=== PATIENT | female | born 1990 | race Caucasian/White ===

== ENCOUNTER 2021-07-11 03:21 | Emergency (ER) | payer MEDICAID ==
[~2021-07-11] VITALS: Ht 167.6 cm; Wt 74.1 kg
[2021-07-11 03:27] VITALS: BP 141/99
[2021-07-11] MEDS ORDERED: LORazepam 1 MG tablet PO PRN (03:35)
--- NOTE | 2021-07-11 04:11 | NUR ---
PT IS NOT IN HER ROOM, PHONE AND WALLET LEFT IN ROOM.
--- NOTE | 2021-07-11 04:34 | NUR ---
PT OUTSIDE WITH SECURITY BUT IS REFUSING TO COME BACK IN THE HOSPITAL. ALONSO WAS CALLED TO SPEAK WITH PT, WHO APPEARED VERY INTOXICATED UPON ARRIVAL TO THE ER. NURSE SPOKE WITH PT'S RENETTA STATED THAT THE PT HAD BEEN HOSPITALIZED AT [facility] ABOUT A MONTH AGO FOR A SUICIDE ATTEMPT BY OVERDOSE, STATED SHE HAD ONE OTHER OVERDOSE ATTEMPT HE WAS AWARE OF WHEN SHE WAS IN HER TEENS. PT HAS HX OF BIPOLAR DISORDER, DEPRESSION, ANXIETY, PTSD, AND ADHD, PER HER . PT'S SAID SHE HAD BECOME UPSET WITH HER MOTHER KRISTOPHER, WAS FOUND BY DOCUMENT PHOTOGRAPHER IN THE STREET DOWN FROM THEIR HOUSE. PT'S SAID THAT THE OFFICER WAS TOLD BY THE PT THAT SHE MAY HAVE TAKEN 6 KLONOPIN TONIGHT. STATED SHE HAD BEEN DRINKING ALSO TONIGHT, WAS NOT SURE SHE ACTUALLY HAD KLONOPIN TO TAKE, STATES HE HAD LOCKED UP HER MEDICATIONS AFTER HER PRIOR SUICIDE ATTEMPT.
[2021-07-11] MEDS ORDERED: VILA20TA PO (04:43)
[2021-07-11 05:06] LABS: CLARITY,URINE CLEAR (Clear); GLUCOSE, URINE NEGATIVE (Neg); KETONES,URINE NEGATIVE (Neg); LEUKOCYTE ESTERASE ,URINE NEGATIVE (Neg); NITRITES, URINE NEGATIVE (Neg); OCCULT BLOOD,URINE NEGATIVE (Neg); PROTEIN,URINE NEGATIVE (Neg); UROBILINOGEN,URINE 0.2 E.U/dL (0.2-1.0)
[2021-07-11 05:07] LABS: URINE HCG NEGATIVE (NEG)
[2021-07-11 05:08] LABS: COLOR,URINE STRAW (Yellow); UA COLLECTION TYPE CLN CATCH MIDSTREAM
[2021-07-11 05:20] LABS: URINE AMPHETAMINE SCREEN POSITIVE (Neg); URINE BARBITUATE SCREEN NEGATIVE (Neg); URINE BENZODIAZEPINES SCREEN NEGATIVE (Neg); URINE CANNABINOID SCREEN NEGATIVE (Neg); URINE COCAINE SCREEN NEGATIVE (Neg); URINE METHADONE SCREEN NEGATIVE (Neg); URINE OPIATE SCREEN NEGATIVE (Neg); URINE PHENCYCLIDINE SCREEN NEGATIVE (Neg)
--- NOTE | 2021-07-11 05:35 | NUR ---
PT WAS MOVED TO ER ROOM 15 FOR CLOSER OBSERVATION, BELONGINGS REMOVED EXCEPT HER GLASSES. PT'S 'S NAME IS SHASHI NEWSOME, PHONE NUMBER IS [phone]. REQUESTED TO BE NOTIFIED IF ANYTHING CHANGED
[2021-07-11 05:45] LABS: BASOPHILS % (AUTO) 0.1 % (0-1); EOSINOPHILS % (AUTO) 0.8 % (0-6); HEMATOCRIT 37.4 % (35.0-45.0); MEAN CORPUSCULAR HEMOGLOBIN 34.3 PG (27.0-31.0); MEAN CORPUSCULAR HGB CONC 34.8 g/dL (33.0-36.5); MEAN CORPUSCULAR VOLUME 98.8 FL (78-98); MEAN PLATELET VOLUME 7.9 FL (7.4-10.4); MONOCYTES # (AUTO) 0.4 X10'3 (0-0.9); MONOCYTES % (AUTO) 9.3 % (2-12); NEUTROPHILS # (AUTO) 1.6 X10'3 (1.8-7.7); NEUTROPHILS % (AUTO) 39.8 % (42-75); PLATELET COUNT 282 X10'3 (140-440); RED BLOOD COUNT 3.78 X10'6 (4.20-5.60); RED CELL DISTRIBUTION WIDTH 14.8 % (11.5-14.5); WHITE BLOOD COUNT 4.1 X10'3 (4.5-11.0)
[2021-07-11 05:59] LABS: ALANINE AMINOTRANSFERASE 58 U/L (12-78); ALBUMIN 4.3 G/DL (3.4-5.0); ALKALINE PHOSPHATASE 70 IU/L (46-116); ANION GAP 12 (8-16); ASPARTATE AMINO TRANSFERASE 63 U/L (10-37); BILIRUBIN,TOTAL 0.2 MG/DL (0.1-1.0); BLOOD UREA NITROGEN 9 MG/DL (7-18); BUN/CREATININE RATIO 11.3 (6.6-38.0); CHLORIDE 104 MMOL/L (99-107); GLUCOSE 107 MG/DL (70-104); POTASSIUM 3.9 MMOL/L (3.5-5.1); SODIUM 143 MMOL/L (135-145); TOTAL PROTEIN 8.5 G/DL (6.4-8.2); eGFR 85 ML/MIN
[2021-07-11 06:09] LABS: ETHANOL 0.265 GM/DL (0.0-0.010)
--- NOTE | 2021-07-11 06:40 | NUR ---
Patient asleep in the bed brought over from the Main ED to ED OF 24. No distress observed. Continue to monitor.
[2021-07-11] MEDS ORDERED: CLON-527 PO (07:27)
--- NOTE | 2021-07-11 08:35 | NUR ---
Patient was sleeping. RN brought over tray and RN advised patient that her breakfast was here. Patient opened her eyes and rolled over to her right side. No distress observed. Patient wants to continue to sleep. Continue to monitor.
--- NOTE | 2021-07-11 10:22 | NUR ---
Patient sitting up and wanted to talk to her on the phone. Patient a little tearful. Continue to monitor.
--- NOTE | 2021-07-11 12:24 | NUR ---
at bedside. Patient tearful. Continue to monitor.
--- NOTE | 2021-07-11 14:36 | NUR ---
Patient sitting up and eating. No distress observed. Continue to monitor.
[2021-07-12] MEDS ORDERED: VILAZODONE HYDROCHLORIDE 20 MG PO SCH (08:00)
== END 2021-07-11 15:10 | disposition home or self-care (01) ==
LOC: ER 03:21
DX: R45.851 Suicidal ideations (principal); Z20.822 Contact with and (suspected) exposure to COVID-19; F41.9 Anxiety disorder, unspecified; F10.129 Alcohol abuse with intoxication, unspecified; F32.9 Major depressive disorder, single episode, unspecified; Z72.89 Other problems related to lifestyle; Y90.9 Presence of alcohol in blood, level not specified
CPT/HCPCS: 36415; 80053; 80305; 80320; 81003; 81025; 84443; 85025; 87635; 99285; C9803